=== PATIENT | female | born 1985 | race African-American/Black ===

== ENCOUNTER → 2016-05-24 | Day surgery (SDC) | payer SELFPAY ==
[~2016-05-24] VITALS: Ht 162.6 cm; Wt 68.9 kg
--- NOTE | 2016-05-24 12:37 | Operative Report ---
Operative/Inv Procedure Report Surgery Date: 05/24/16 Name of Procedure: Abdominoplasty Pre-Operative Diagnosis: Cosmetic laxity of the anterior abdominal wall Post-Operative Diagnosis: Same Estimated Blood Loss: 50ml to 100ml Surgeon/Music Industry Intern: ELVIA CAST,ARELY Chopra Anesthesia: general endotracheal tube Operative/Procedure Note Note: Patient was counseled extensively in regards to the procedure the alternatives risks and expected outcomes as relates to her request for surgical intervention for cosmetic reasons involving the anterior abdominal wall laxity. NS PS informed consent which she has returned signs and has no questions regarding today. We discussed general risks once again. As to recovery. On instructions. In the standing position show Jaime would be treated and knows that would not. She was taken to the operating room placed supine on the table. Venodyne boots are placed and then general endotracheal anesthesia was established intravenous antibiosis given. The abdomen was prepped and draped in usual sterile fashion. The umbilicus was freed from the abdominal wall and the lower incision was deepened. The upper incision which appeared to be safe and tension-free. A central tunnel was then developed up to the xiphoid and a 2 layer nonabsorbable suture was used to plicate the diastases from xiphoid to pubis. The flap was then brought down and closed in 3 layers over drain with the umbilicus closed in 3 layers. Dressings applied, one drain was placed beneath the abdominal wall
== END ==
LOC: STS 02:31
DX: Z41.1 Encounter for cosmetic surgery (principal); E65 Localized adiposity
CPT/HCPCS: 81025; 88302; J0690; J2250